=== PATIENT | female | born 1955 | race Caucasian/White ===

== ENCOUNTER 2023-06-29 07:41 | Day surgery (SDC) | payer MEDICARE, MEDICAID ==
[~2023-06-29] VITALS: Ht 170.2 cm; Wt 99.3 kg
[~2023-06-29 07:41] MED LIST: CYCLOBENZAPRINE10 MG PO; PAXIL20 MG PO
[2023-06-29 07:59] VITALS: BP 148/79
--- NOTE | 2023-06-29 09:28 | NUR ---
06/29/23 0928 [place] [address] PT ARRIVED TO PACU ON 2L VIA MASK, PT WAKES TO TACTILE STIMULI. PT REORIENTED TO PACU AND DENIES CONCERNS, PT ENCOURAGED TO PASS GAS. PT EASILY FALLS BACK TO SLEEP. RESP EVEN AND UNLABORED.
[2023-06-29 09:59] VITALS: BP 125/80
--- NOTE | 2023-06-30 06:31 | OR ---
[facility] [address], [place] [address] Signed DATE OF OPERATION: 06/29/2023 SURGEON: Gorge Hill MD PREOPERATIVE DIAGNOSIS: Personal history of colonic polyps at age 54. POSTOPERATIVE DIAGNOSES: 1. Minimal sigmoid diverticulosis. 2. Minimal internal hemorrhoids. 3. 3 mm polyps x3 at 15 cm (rectosigmoid junction). PROCEDURE: Colonoscopy with hot biopsy. ESTIMATED BLOOD LOSS: None. INDICATIONS: Candy is a 67-year-old female, asked to see me for a followup colonoscopy. She describes a colonoscopy in 2009 at the age 54 in [place], [place]. This was done for screening purposes. She believes three polyps were removed. She cannot recall exactly who performed the procedure. She spoke of a colonoscopy in 2018 at the age of 62 [address] Gorge Hooks in [place], [place]. She does not know those results. We have been trying to track down those records. She currently has no lower GI complaints. There is no family history of colon cancer or polyps. She has moved back to [place], [place] to be closer to her family. Therefore, she has been asked to see me for a followup colonoscopy. In the office, I gave her a pamphlet on colonoscopy. We reviewed the nature of the test. There is risk including, but not limited to gas bloating, crampy abdominal pain, bleeding, perforation requiring surgery and missed diagnosis. She recalls the need for IV conscious sedation. She had expressed understanding and wished to proceed. PROCEDURE NOTE: Candy was taken into our endoscopy suite and placed in the left lateral decubitus position. She was given a total of 3.5 mg of Versed and 100 mcg of fentanyl to cover the case. A digital rectal exam was performed. No external hemorrhoids. Good sphincter tone. There were no masses. The adult colonoscope was introduced and advanced all around into the cecum under direct visualization of the camera. It took just a little bit of abdominal compression in order to get the scope directly into the Electronically Signed By: GORGE HILL MD 06/30/23 0631 PATIENT NAME: CANDY NAGEL OPERATIVE REPORT DATE OF : 53 REPORT #: [id number] PHYSICIAN: GORGE HILL MD PCP: RESHMA DIA PA-C REPORT IS CONFIDENTIAL AND NOT TO BE RELEASED WITHOUT AUTHORIZATION [facility] [address], [place] [address] Signed cecum itself. Her prep was quite excellent. The scope was then slowly withdrawn. We took pictures throughout for photodocumentation. We could easily see the appendiceal orifice and the ileocecal valve. We saw just a few tiny diverticula in her sigmoid colon. They were small in size, few in number and scattered about. She had three tiny 3 mm polyps at the rectosigmoid junction at 15 cm. They were all removed with the hot biopsy forceps and placed into the same jar. The rectum was unremarkable. Upon retroflexion of the scope, she has very minimal internal hemorrhoid tissue with two tiny internal anal skin tags. After this, the gas was suctioned out and the colonoscope removed. Candy tolerated the procedure quite well. RECOMMENDATIONS: I will see Candy back in my office in 7 to 14 days to review her results. We will have to try to review her records from her previous two colonoscopies as well. MD ANDRIA Jarrell/HALLEL /[id number] cc: MD Reshma Jarrell PA Copies: GORGE HILL MD ~ Electronically Signed By: GORGE HILL MD 06/30/23 0631 PATIENT NAME: CANDY NAGEL OPERATIVE REPORT DATE OF : 53 REPORT #: [id number] PHYSICIAN: GORGE HILL MD PCP: RESHMA DIA PA-C REPORT IS CONFIDENTIAL AND NOT TO BE RELEASED WITHOUT AUTHORIZATION
--- NOTE | 2023-06-30 12:25 | PATH ---
[facility] [address] [place], [place] [address] Signed SPECIMEN(S): A RECTOSIGMOID POLYP SPECIMEN SOURCE: A. RECTOSIGMOID POLYP CLINICAL HISTORY: Hx of polyps. Post: Polyps x 3 rectosigmoid at 15 cm; minimal internal hemorrhoids. FINAL PATHOLOGIC DIAGNOSIS: Rectosigmoid polyp: - Hyperplastic polyp (multiple fragments). JVR:sm:C2NR MICROSCOPIC EXAMINATION: Histologic sections of all submitted blocks are examined by light microscopy. These findings, together with the gross examination, support the pathologic diagnosis. GROSS DESCRIPTION: The specimen, labeled and designated "Shae, rectosigmoid polyp at 15 cm," is received in formalin and consists of three linares soft tissue fragments, ranging from 0.2-0.5 cm. Entirely submitted in (A1). VB (under the direct supervision of a pathologist) The Gross Description was prepared using a voice recognition system. The report was reviewed for accuracy; however, sound-alike word errors, addition and/or deletions may occur. If there is any question about this report, please contact Client Services. PERFORMING LABORATORY: Technical component was performed by [facility], [address] [place] [id number] (CLIA# [id number]). Professional interpretation was performed by [facility], [address] [place] [id number] (CLIA#: [id number]). Diagnostician: Yuri Flannery MD Pathologist Electronically Signed 06/30/2023 PATIENT NAME: LOREN NAGEL PATHOLOGY DATE OF : 53 REPORT #: [id number] PHYSICIAN: MERCEDES STONE PCP: RESHMA DIA PA-C REPORT IS CONFIDENTIAL AND NOT TO BE RELEASED WITHOUT AUTHORIZATION [address] [place], [place] [address] Signed Copies: ~ PATIENT NAME: LOREN NAGEL PATHOLOGY DATE OF : 53 REPORT #: [id number] PHYSICIAN: MERCEDES PATHOLOGY PCP: RESHMA DIA PA-C REPORT IS CONFIDENTIAL AND NOT TO BE RELEASED WITHOUT AUTHORIZATION
== END 2023-06-29 10:15 | disposition home or self-care (01) ==
LOC: DS 07:41 → OPS 07:41 → DS 07:50 → OPS 09:00
PROVIDERS: ATTEND Colon & Rectal Surgery
PROC: 0DBN8ZX Excision of Sigmoid Colon, Via Natural or Artificial Opening Endoscopic, Diagnostic (ICD-10-PCS; principal; 2023-06-29 09:00)
DX: Z12.11 Encounter for screening for malignant neoplasm of colon (principal); K57.30 Diverticulosis of large intestine without perforation or abscess without bleeding; K63.5 Polyp of colon; K64.8 Other hemorrhoids; Z86.010 Personal history of colon polyps; E78.5 Hyperlipidemia, unspecified; F32.9 Major depressive disorder, single episode, unspecified; F17.210 Nicotine dependence, cigarettes, uncomplicated; E66.9 Obesity, unspecified; Z68.33 Body mass index [BMI] 33.0-33.9, adult; Z79.899 Other long term (current) drug therapy
CPT/HCPCS: 99153; G0500; J2250; J3010; J7121

== ENCOUNTER 2025-06-15 05:04 | Emergency (ER) | payer MEDICARE, OTHER ==
[2025-06-15 05:24] LABS: BASOPHILS 1.1 % (0.1-1.2); EOSINOPHILS 4.4 % (0.7-5.8); LYMPHOCYTES 31.3 % (19.3-51.7); MCH 31.1 PG (25.6-32.2); MCHC 33.7 g/dL (32.2-35.5); MCV 92.5 fL (79.4-94.8); MONOCYTES 6.9 % (4.7-12.5); NEUTROPHILS 55.7 % (34.0-71.1); RBC 4.24 M/uL (3.93-5.22)
[2025-06-15] MEDS ORDERED: HYDROmorphone HCL 1 MG/ML SYR IV PRN (05:45)
[2025-06-15 05:51] LABS: ALCOHOL, MEDICAL 198.0 ng/dL (<3); ALT (SGPT) 20.0 U/L (14-59); AST (SGOT) 19.0 U/L (15-37); GLOMERULAR FILTRATION RATE,EST 77.0 mL/min (>60); PROTEIN, TOTAL 6.4 g/dL (6.4-8.2); UREA NITROGEN 13.0 mg/dL (7-18)
[2025-06-15] MEDS ORDERED: DIPHTH,PERTUSS(ACELL),TET VAC 0.5 ML SYRINGE IM ONE (06:00)
[2025-06-15 06:08] LABS: ABO O; ANTIBODY SCREEN NEGATIVE; RH POSITIVE
[2025-06-15 07:16] LABS: AMPHETAMINES, URINE NEGATIVE (NEGATIVE); BARBITURATES, URINE NEGATIVE (NEGATIVE); BENZODIAZEPINE, URINE NEGATIVE (NEGATIVE); CANNABINOID, URINE POSITIVE (NEGATIVE); COCAINE, URINE NEGATIVE (NEGATIVE); ECSTASY, URINE NEGATIVE (NEGATIVE); FENTANYL, URINE NEGATIVE (NEGATIVE); METHADONE, URINE NEGATIVE (NEGATIVE); OPIATES, URINE NEGATIVE (NEGATIVE); OXYCODONE, URINE NEGATIVE (NEGATIVE); PHENCYCLIDINE, URINE NEGATIVE (NEGATIVE)
[2025-06-15 12:28] VITALS: BP 00/00
== END 2025-06-15 12:28 | disposition home or self-care (01) ==
LOC: ED 05:04
PROVIDERS: Emergency Medicine
DX: S06.6XAA Traumatic subarachnoid hemorrhage with loss of consciousness status unknown, initial encounter (principal); F10.129 Alcohol abuse with intoxication, unspecified; W18.30XA Fall on same level, unspecified, initial encounter; Z79.899 Other long term (current) drug therapy
CPT/HCPCS: 36415; 70450; 70486; 72125; 80053; 80307; 85025; 86850; 86900; 86901; 90471; 90715; 96374; 96375; 96376; 99284-25; G0480; J1171; J2405